=== PATIENT | female | born 1955 | race African-American/Black ===

== ENCOUNTER → 2018-08-29 13:14 | Outpatient (CLI) | payer MEDICARE, MEDICAID ==
--- NOTE | ~2018-08-29 | HEMODYNAMI ---
PATIENT:PANFILO PRATHER MEDICAL RECORD: [id number] : 53 LOCATION:[facility] ADMISSION DATE: 08/29/18 Generatedon:08/29/201814:40 Patient name: PANFILO PRATHER Patient #: [id number] SSN: D OB: 1955 Date of study: 08/29/2018 Page: Of Hemodynamic Procedure Report Patient Data Patient Demographics Procedure consent was obtained First Name: PANFILO Gender: Female Last Name: YAMILKA : 1955 Patient #: [id number] Age: 63 year(s) Race: Black Additional ID: [id number] Contact details [address]: [address] [place] [address] [address]IVE State: [place] City: [place] Zip code: [address] Past Medical History Allergies: No known allergies Admission Admission Data Admission Date: 08/29/2018 Admission Time: 13:14 Procedure Procedure Types Cath Procedure Peripheral Cath Diagnostic Procedure Gastric G Tube Placement Procedure Description Procedure Date Procedure Date: 08/29/2018 Procedure Start Time: 14:34 Procedure Staff Name Function Jak Fuller MD Performing Physician Zoe Rooney Scrub Malick Beckman RT Monitor Sho Farfan RN Nurse Procedure Data Cath Procedure Fluoroscopy Diagnostic fluoroscopy Total fluoroscopy Time: 0.2 time: 0.2 min min Diagnostic fluoroscopy Total fluoroscopy dose: 1 dose: 1 mGy mGy Contrast Material Contrast Material Type Amount (ml) Isovue 300 15 Hemodynamics Rest Pre Cath Intra NCS Post Cath Procedure Log Time Note 14:03:10 Malick Beckman RT (R) (CV) sent for patient. Start room use. 14:03:20 Time tracking: Regular hours (M-F 7:00 - 5:00) 14:03:24 Patient received from Outpatients to IR Alert and oriented. Tansferred to table in Supine position. 14:03:27 Correct patient and procedure confirmed by team. 14:03:40 Signed procedure consent form obtained from verbal consent by 14:04:04 Full Disclosure recording started 14:04:04 - 14:04:05 Pre-procedure instructions explained to patient. 14:04:06 Pre-op teaching completed and patient verbalized understanding. 14:04:16 Use device set IR Diagnostic 14:04:18 Sterile Angiographic Pack opened to sterile field. 14:04:18 Bag Decanter () opened to sterile field. 14:04:34 Left Abdomen was prepped with chlora-prep and draped in sterile fashion . 14:11:21 Patient allergic to No known allergies 14:33:13 Physician arrived 14:33:13 --------ALL STOP TIME OUT------ 14:33:14 Final Timeout: patient, procedure, and site verified with staff and physician. All members of the team are in agreement. 14:33:18 Left abdomen site verified by team. 14:33:27 Sedation plan: Local Anesthetic Medication:Lidocaine 14:34:28 Procedure started. 14:34:33 Local anesthetic to Abdominal area with Lidocaine 1% by Jak Fuller MD.INITIAL ACCESS ONLY 14:34:50 GASTROSTOMY 20Fr Tri-Funnel Tube ([id number]) opened to sterile field. 14:35:24 ROADRUNNER .035 145 glide wire ([id number]) opened to sterile field. 14:38:16 Procedure ended.(Physican Out) 14:38:38 Fluoroscopy time 00.20 minutes. 14:38:41 Fluoroscopy dose: 1 mGy 14:38:41 Flurop Dose total: 1 14:38:59 Contrast amount:Isovue 300 15ml. 14:39:04 Sharps counted by scrub and verified by R.N. 14:39:11 Report given to Other. 14:39:14 Patient transfered to Other with Wheelchair. Device Usage Item Name Manufacture Quantity Catalog Hospital Part Current Minimal Lot# / Number Charge Number Stock Stock Serial# Code Sterile Cardinal 1 [id number] 5 Angiographic Health Pack Bag Decanter Microtek 1 [id number] [id number] 237858 5 () Medical Inc. GASTROSTOMY Bard 1 [id number] 080091 887937 5 20Fr Tri-Funnel Tube (356643) [facility] 1 [id number] 200723 [id number] 5 [id number] .035 145 glide wire ([id number]) Signature Audit [place] Stage Time Signature Unsigned Intra-Procedure 08/29/2018 Malick 2:40:21 PM Rk RT (R) (CV) Signatures Monitor : Malick Signature : Rk RT Date : Time : [address] [address]
== END | disposition home or self-care (01) ==
LOC: D.SP 13:14
DX: K94.23 Gastrostomy malfunction (principal); Z01.812 Encounter for preprocedural laboratory examination

== ENCOUNTER → 2019-01-17 08:08 | Outpatient (CLI) | payer MEDICARE ==
--- NOTE | ~2019-01-17 | HEMODYNAMI ---
PATIENT:MENA PRATHER MEDICAL RECORD: [id number] : 53 LOCATION:[facility] ADMISSION DATE: 01/17/19 Generatedon:01/17/20199:13 Patient name: MENA PRATHER Patient #: [id number] SSN: DO B: 1955 Date of study: 01/17/2019 Page: Of Hemodynamic Procedure Report Patient Data Patient Demographics Procedure consent was obtained First Name: MENA Gender: Female Last Name: YAMILKA : 1955 Middle Initial: A Age: 63 year(s) Patient #: [id number] Race: Black Additional ID: [id number] Contact details Address: [address] [place] [address] [address]IVE State: [place] City: [place] Zip code: [address] Past Medical History Allergies: No known allergies Admission Admission Data Admission Date: 01/17/2019 Admission Time: 8:08 Procedure Procedure Types Cath Procedure Peripheral Cath Diagnostic Procedure Gastric G Tube Replacement Procedure Description Procedure Date Procedure Date: 01/17/2019 Procedure Start Time: 9:00 Procedure Staff Name Function Drew Corrigan MD Performing Physician Yancy Broderick RT Senior Bookkeeper Estefany Pandya RN Nurse MIKEY TELLO RT Scrub Procedure Data Cath Procedure Fluoroscopy Diagnostic fluoroscopy Total fluoroscopy Time: 0.7 time: 0.7 min min Diagnostic fluoroscopy Total fluoroscopy dose: 10 dose: 10 mGy mGy Contrast Material Contrast Material Type Amount (ml) Isovue 300 15 Hemodynamics Rest Pre Cath Intra NCS Post Cath Vital Signs Time SPO2 etCO2 NIBP (mmHg) Rhythm Pain Sedation (%) (mmHg) Status Level 9:11:37 98 0 140/78(115) NSR 0 (11) , 10(A) No pain Procedure Log Time Note 8:29:55 Use device set IR Diagnostic 8:29:57 Sterile Angiographic Pack opened to sterile field. 8:29:58 Bag Decanter () opened to sterile field. 8:30:10 GASTROSTOMY 20Fr Tri-Funnel Tube ([id number]) opened to sterile field. 8:30:16 8:41:55 Time tracking: Regular hours (M-F 7:00 - 5:00) 8:43:06 Patient received from Other to IR Alert and oriented. Tansferred to table in Supine position. 8:43:12 Signed procedure consent form obtained from guardian. 8:44:13 Pre-procedure instructions explained to patient. 8:44:16 Family unavailable. 8:44:24 Patient allergic to No known allergies 8:44:29 Is the patient allergic to Iodine/contrast media? No. 8:44:34 8:45:11 no sedation required for this procedure. local only 8:45:19 8:45:36 Left abdomen area was prepped with chlora-prep and draped in sterile fashion 8:45:48 8:59:30 Physician arrived 8:59:32 --------ALL STOP TIME OUT------ 8:59:33 Final Timeout: patient, procedure, and site verified with staff and physician. All members of the team are in agreement. 9:00:14 Procedure started. 9:00:15 Full Disclosure recording started 9:00:22 Local anesthetic to Abdominal area with Lidocaine 1% by Drew Corrigan MD.INITIAL ACCESS ONLY 9:01:59 AMPLATZ Super Stiff 75cm wire ([id number]) opened to sterile field. 9:11:30 gastric tube replaced with a 20fr bard tri funnel tube. 9:11:44 Procedure ended.(Physican Out) 9:12:13 Fluoroscopy time 00.70 minutes. 9:12:18 Fluoroscopy dose: 10 mGy 9:12:18 Flurop Dose total: 10 9:12:25 Contrast amount:Isovue 300 15ml. 9:12:28 Procedure and supply charges have been captured, reviewed, submitted and are correct. 9:12:52 Patient transfered to Other with Wheelchair. Device Usage Item Name Manufacture Quantity Catalog Hospital Part Current Minimal Lot# / Number Charge Number Stock Stock Serial# Code Sterile Cardinal 1 [id number] 5 Angiographic Health Pack Bag Decanter Microtek 1 [id number] 84390 [id number] 5 () Medical Inc. GASTROSTOMY Bard 1 096670 627311 170459 5 20Fr Tri-Funnel Tube (684249) AMPLATZ [place] 1 [id number] 315776 723541 5 Super Stiff Scientific 75cm wire ([id number]) Signature Audit [place] Stage Time Signature Unsigned Intra-Procedure 01/17/2019 Yancy Broderick 9:13:04 AM RT(R) [place] [place] [address]
== END | disposition home or self-care (01) ==
LOC: D.SP 08:08 → D.RAD 09:00
PROVIDERS: ATTEND Family Medicine
DX: K94.23 Gastrostomy malfunction (principal); Z01.812 Encounter for preprocedural laboratory examination

== ENCOUNTER → 2019-04-08 13:29 | Outpatient (CLI) | payer MEDICARE ==
--- NOTE | ~2019-04-08 | HEMODYNAMI ---
PATIENT:MENA PRATHER MEDICAL RECORD: [id number] : 53 LOCATION:[facility] ADMISSION DATE: 04/08/19 Generatedon:04/08/201917:11 Patient name: MENA PRATHER Patient #: [id number] SSN: DO B: 1955 Date of study: 04/08/2019 Page: Of Hemodynamic Procedure Report Patient Data Patient Demographics Procedure consent was obtained First Name: MENA Gender: Female Last Name: YAMILKA : 1955 Middle Initial: A Age: 64 year(s) Patient #: [id number] Race: Black Additional ID: [id number] Contact details Address: [address] [place] [address] [address]IVE State: [place] City: [place] Zip code: [address] Past Medical History Allergies: No known allergies Admission Admission Data Admission Date: 04/08/2019 Admission Time: 13:29 Procedure Procedure Types Cath Procedure Peripheral Cath Diagnostic Procedure Gastric G Tube Replacement Procedure Description Procedure Date Procedure Date: 04/08/2019 Procedure Start Time: 17:03 Procedure End Time: 17:10 Procedure Staff Name Function Drew Corrigan MD Performing Physician Zoe Rooney RT Monitor Estefany Pandya RN Nurse Malick Beckman RT Scrub Procedure Data Cath Procedure Fluoroscopy Diagnostic fluoroscopy Total fluoroscopy Time: 0.7 time: 0.7 min min Diagnostic fluoroscopy Total fluoroscopy dose: 11 dose: 11 mGy mGy Contrast Material Contrast Material Type Amount (ml) Isovue 300 10 Hemodynamics Rest Pre Cath Intra NCS Post Cath Procedure Log Time Note 16:54:26 Malick Beckman RT (R) (CV) sent for patient. Start room use. 16:54:30 Time tracking: Regular hours (M-F 7:00 - 5:00) 16:55:06 Patient received from Other to IR Alert and oriented. Tansferred to table in Supine position. 16:55:18 Signed procedure consent form obtained from patient. 16:55:47 Warm blankets applied, and marichuy hugger turned on for patient comfort. 16:55:50 Correct patient and procedure confirmed by team. 16:55:53 Full Disclosure recording started 16:56:22 Patient allergic to No known allergies 16:56:51 Left abdomen area was prepped with chlora-prep and draped in sterile fashion 16:56:55 Alarms reviewed. 16:56:56 Sharps counted by scrub and verified. 16:57:38 Use device set IR Diagnostic 16:57:41 Bag Decanter () opened to sterile field. 16:57:42 Sterile Angiographic Pack opened to sterile field. 17:01:14 Physician arrived 17:01:15 --------ALL STOP TIME OUT------ 17:01:16 Final Timeout: patient, procedure, and site verified with staff and physician. All members of the team are in agreement. 17:01:25 Left abdomen site verified by team. 17:02:29 Sedation plan: None Medication:NONE 17:03:14 Procedure started. 17:05:19 GLIDE WIRE Angled Super Stiff 180cm ([id number]) opened to sterile field. 17:05:40 GASTROSTOMY 20Fr Tri-Funnel Tube (283175) opened to sterile field. 17:07:28 Procedure ended.(Physican Out) 17:07:35 Fluoroscopy time 00.70 minutes. 17:07:43 Fluoroscopy dose: 11 mGy 17:07:43 Flurop Dose total: 11 17:07:54 Dose Area Product 4089 mGy/cm. 17:09:07 Contrast amount:Isovue 300 10ml. 17:09:10 Sharps counted by scrub and verified. 17:09:46 Post Abdominal area:unchanged 17:10:08 Post procedure instruction explained to patient.Patient verbalizes understanding. 17:10:11 Patient needs reinforcement of post procedure teaching. 17:10:13 Procedure and supply charges have been captured, reviewed, submitted and are correct. 17:10:39 See physician's report for complete and final results. 17:10:47 Patient transfered to Other with Wheelchair. 17:10:51 Procedure ended. 17:10:51 Full Disclosure recording stopped Device Usage Item Name Manufacture Quantity Catalog Hospital Part Current Minimal Lot# / Number Charge Number Stock Stock Serial# Code Bag Decanter Microtek 1 [id number] 5 (2002S) Medical Inc. Sterile Cardinal 1 [id number] 401656 5 Angiographic Health Pack GLIDE WIRE Terumo 1 [id number] 300663 5 Angled Super Stiff 180cm (DB9078) GASTROSTOMY Bard 1 004996 710952 290895 5 20Fr Tri-Funnel Tube (576055) Signature Audit [place] Stage Time Signature Unsigned Intra-Procedure 04/08/2019 Zoe 5:11:23 PM Nevin GERARDO(R) (CV) Signatures Monitor : Zoe Signature : Nevin RT Date : Time : [place] [address] [place] [address]
== END | disposition home or self-care (01) ==
LOC: D.SP 13:29 → D.RAD 14:00
PROVIDERS: ATTEND Family Medicine
DX: K94.23 Gastrostomy malfunction (principal); Z01.812 Encounter for preprocedural laboratory examination

== ENCOUNTER → 2019-06-04 13:51 | Outpatient (CLI) | payer MEDICARE ==
--- NOTE | ~2019-06-04 | HEMODYNAMI ---
PATIENT:MENA PRATHER MEDICAL RECORD: [id number] : 53 [id number] AD[facility] DATE: 06/04/19 Generatedon:06/04/201914:45 Patient name: MENA PRATHER Patient #: [id number] SSN: DO B: 1955 Date of study: 06/04/2019 Page: Of Hemodynamic Procedure Report Patient Data Patient Demographics Procedure consent was obtained First Name: MENA Gender: Female Last Name: YAMILKA : 1955 Middle Initial: A Age: 64 year(s) Patient #: [id number] Race: Black Additional ID: [id number] Contact details Address: [address] [place] [address] [address]IVE State: [place] City: [place] Zip code: [address] Past Medical History Allergies: No known allergies Admission Admission Data Admission Date: 06/04/2019 Admission Time: 13:51 Procedure Procedure Types Cath Procedure Peripheral Cath Diagnostic Procedure Cigarette Inspector Peripheral Procedures Gastric G Tube Replacement Procedure Description Procedure Date Procedure Date: 06/04/2019 Procedure Start Time: 14:33 Procedure Staff Name Function Viral Lorenzo MD Performing Physician Yancy Broderick RT Rn Field Case Manager MIKEY TELLO RT Scrub Estefany Pandya RN Nurse Procedure Data Cath Procedure Fluoroscopy Diagnostic fluoroscopy Total fluoroscopy Time: 0.8 time: 0.8 min min Diagnostic fluoroscopy Total fluoroscopy dose: 14 dose: 14 mGy mGy Contrast Material Contrast Material Type Amount (ml) Isovue 300 8 Hemodynamics Rest Pre Cath Intra NCS Post Cath Procedure Log Time Note 14:29:24 Time tracking: Regular hours (M-F 7:00 - 5:00) 14:29:43 Patient received from Other to IR Alert and oriented. Tansferred to table in Supine position. 14:29:49 Signed procedure consent form obtained from verbally. 14:29:59 H&P Date Dictated: 06/04/2019 Within 30 days and on chart.. 14:30:06 Family unavailable. 14:30:14 Patient allergic to No known allergies 14:30:26 Left abdomen area was prepped with chlora-prep and draped in sterile fashion 14:30:38 Use device set IR Diagnostic 14:30:40 Sterile Angiographic Pack opened to sterile field. 14:30:41 Bag Decanter () opened to sterile field. 14:30:50 GASTROSTOMY 20Fr Tri-Funnel Tube (015807) opened to sterile field. 14:30:57 PANDA 180cm wire ([id number]) opened to sterile field. 14:31:03 - 14:31:06 Physician arrived 14:31:07 --------ALL STOP TIME OUT------ 14:31:08 Final Timeout: patient, procedure, and site verified with staff and physician. All members of the team are in agreement. 14:33:50 Procedure started. 14:33:51 Full Disclosure recording started 14:33:57 Local anesthetic to Abdominal area with Lidocaine 1% by Viral Lorenzo MD.INITIAL ACCESS ONLY 14:43:38 g tube replaced with a 20fr 14:43:44 Procedure ended.(Physican Out) 14:44:14 Fluoroscopy time 00.80 minutes. 14:44:19 Fluoroscopy dose: 14 mGy 14:44:19 Flurop Dose total: 14 14:44:25 Contrast amount:Isovue 300 8ml. 14:44:29 Procedure and supply charges have been captured, reviewed, submitted an d are correct. Device Usage Item Name Manufacture Quantity Catalog Hospital Part Current Minimal Lot# / Number Charge Number Stock Stock Serial# Code Sterile Cardinal 1 [id number] 5 Angiographic Health Pack Bag Decanter Microtek 1 118253 88396 184400 5 () Medical Inc. GASTROSTOMY Bard 1 [id number] 008649 137701 5 20Fr Tri-Funnel Tube (612395) PANDA 180cm [employer] 1 [id number] 5 wire ([id number]) Signature Audit [place] Stage Time Signature Unsigned Intra-Procedure 06/04/2019 Yancy Broderick 2:45:05 PM RT(R) [facility] [address] [place] [address]
== END | disposition home or self-care (01) ==
LOC: D.RAD 13:00
PROVIDERS: ATTEND Family Medicine
DX: Z93.1 Gastrostomy status (principal)

== ENCOUNTER 2019-08-07 09:44 | Emergency (ER) | payer MEDICARE ==
--- NOTE | ~2019-08-07 | HEMODYNAMI ---
PATIENT:MENA PRATHER MEDICAL RECORD: [id number] : 53 [id number] AD[facility] DATE: 08/07/19 Generatedon:08/07/201911:08 Patient name: MENA PRATHER Patient #: [id number] SSN: DO B: 1955 Date of study: 08/07/2019 Page: Of Hemodynamic Procedure Report Patient Data Patient Demographics Procedure consent was obtained First Name: MENA Gender: Female Last Name: YAMILKA : 1955 Middle Initial: A Age: 64 year(s) Patient #: [id number] Race: Black Additional ID: [id number] Contact details Address: [address] [place] [address] [address]IVE State: [place] City: [place] Zip code: [address] Past Medical History Allergies: No known allergies Admission Admission Data Admission Date: 08/07/2019 Admission Time: 9:44 Procedure Procedure Types Cath Procedure Peripheral Cath Diagnostic Procedure Mortgage Branch Manager Peripheral Procedures Gastric G Tube Replacement Procedure Description Procedure Date Procedure Date: 08/07/2019 Procedure Start Time: 10:51 Procedure Staff Name Function Lyndsey Pena MD Ordering physician Augustus Kline MD Performing Physician Yancy Broderick RT Knot Tying Operator Sho Farfan RN Nurse Malick Beckman RT Scrub Procedure Data Cath Procedure Fluoroscopy Diagnostic fluoroscopy Total fluoroscopy Time: 0.9 time: 0.9 min min Diagnostic fluoroscopy Total fluoroscopy dose: 6 dose: 6 mGy mGy Contrast Material Contrast Material Type Amount (ml) Isovue 300 15 Hemodynamics Rest Pre Cath Intra NCS Post Cath Procedure Log Time Note 18:40:47 G TUBE REPLACED WITH A 20FR TRI FUNNEL 10:32:53 Time tracking: Regular hours (M-F 7:00 - 5:00) 10:33:13 Plan of Care:Hemodynamics will remain stable., Cardiac rhythm will remain stable., Comfort level will be maintained., Respiratory function will remain adequate., Patient/ family verbilizes understanding of procedure., Procedure tolerated without complication., Recovers from procedure without complications.. 10:33:19 Signed procedure consent form obtained from verbally. 10:33:29 Family unavailable. 10:33:33 Patient NPO since Midnight. 10:33:42 Patient allergic to No known allergies 10:33:59 Left abdomen area was prepped with chlora-prep and draped in sterile fashion 10:34:02 - 10:34:06 Use device set IR Diagnostic 10:34:08 Sterile Angiographic Pack opened to sterile field. 10:34:10 Bag Decanter () opened to sterile field. 10:34:20 GASTROSTOMY 20Fr Tri-Funnel Tube ([id number]) opened to sterile field. 10:34:27 - 10:46:58 Physician arrived 10:46:58 --------ALL STOP TIME OUT------ 10:46:59 Final Timeout: patient, procedure, and site verified with staff and physician. All members of the team are in agreement. 10:51:40 Procedure started. 10:51:40 Full Disclosure recording started 11:01:38 Procedure ended.(Physican Out) 11:02:29 Fluoroscopy time 00.90 minutes. 11:02:35 Fluoroscopy dose: 6 mGy 11:02:35 Flurop Dose total: 6 11:02:41 Contrast amount:Isovue 300 15ml. 11:08:13 Patient transfered to Other with Stretcher. Device Usage Item Name Manufacture Quantity Catalog Hospital Part Current Minimal Lot# / Number Charge Number Stock Stock Serial# Code Sterile Cardinal 1 [id number] 5 Angiographic Health Pack Bag Decanter Microtek 475266 [id number] [id number] 5 () [facility]. GASTROSTOMY Bard 1 [id number] [id number] [id number] 5 20Fr Tri-Funnel Tube (618617) Signature Audit [place] Stage Time Signature Unsigned Intra-Procedure 08/07/2019 Yancy Broderick 11:08:28 AM RT(R) [facility] [address] [place] [address]
[2019-08-07 09:49] VITALS: BP 136/74
== END 2019-08-07 13:17 | disposition home or self-care (01) ==
LOC: D.ER 09:44
DX: K94.23 Gastrostomy malfunction (principal); Z86.73 Personal history of transient ischemic attack (TIA), and cerebral infarction without residual deficits